=== PATIENT | female | born 1990 | race American Indian/Alaskan Native ===

== ENCOUNTER 2018-02-27 19:21 | Emergency (ER) | payer SELFPAY ==
[2018-02-27] MEDS ORDERED: Sodium Chloride 0.9% 10 ML Syringe FLUSH PRN (19:35)
[2018-02-27] MEDS ORDERED: Sodium Chloride 0.9% 1,000 ML IV ONE (19:39)
[2018-02-27] MEDS ORDERED: LORazepam 2 MG/ML SDV IVPUSH ONE ×3 (19:45→20:19)
[2018-02-27] MEDS ORDERED: levETIRAcetam 500 MG in Sodium Chloride 0.9% 100 ML IV ONE (19:45)
[2018-02-27] MEDS ORDERED: Ondansetron 4 MG/2 ML SDV IVPUSH ONE (20:06)
[2018-02-27 20:19] LABS: CHLORIDE,CL 107 mmol/L (98-107); SODIUM,NA 143 mmol/L (136-145)
[2018-02-27] MEDS ORDERED: SODIUM CHLORIDE IV ONE (20:46)
[2018-02-27] MEDS ORDERED: [UNRECOGNIZED DRUG - OTHER] IV ONE (20:46)
[2018-02-27] MEDS ORDERED: FOSPHENYTOIN IV ONE (20:46)
[2018-02-27] MEDS ORDERED: Magnesium Sulfate/Water 4 GM in Premix Bag 1 BAG IV ONE (20:57)
[2018-02-27] MEDS ORDERED: Magnesium Sulfate/Water 2 GM in Premix Bag 1 BAG IV ONE (20:58)
[2018-02-27] MEDS ORDERED: Betamethasone Acetate/Betamethasone Sod Phosphate 30 MG/5 ML MDV IM ONE (20:58)
[2018-02-27] MEDS ORDERED: Labetalol 20 MG/4 ML Syringe IVPUSH ONE (20:59)
[2018-02-27] MEDS: OLANZapine 10 MG Vial IM ONE ×2 (21:00→21:06)
[2018-02-27] MEDS ORDERED: Magnesium Sulfate/Water 50 ML ONE (21:18)
--- NOTE | 2018-02-27 21:25 | EDM.PDOC ---
ED HPI GENERAL MEDICAL PROBLEM - General Chief Complaint: Neuro Symptoms/Deficits Stated Complaint: seizures Time Seen by Provider: 02/27/18 19:33 Source of Information: Reports: Patient, EMS Notes Reviewed, Family, Old Records , RN, RN Notes Reviewed History Limitations: Reports: No Limitations - History of Present Illness INITIAL COMMENTS - FREE TEXT/NARRATIVE: Patient is brought to the emergency room at [facility] via EMS for a witnessed seizure. Apparently the patient was on her way to [place] when she started to have a witnessed seizure by the frontload driver which lasted 2-3 minutes. EMS crew was called. Upon their arrival the patient was post ictal and was very combative. The patient was brought to the emergency room. Upon arrival the patient continued to be post ictal, less combative, but uncontrollable. The patient is 24 weeks . It is unknown whether or not the patient has a seizure history. Onset: Today, Sudden Onset Date: 02/27/18 - Related Data Allergies Allergy/AdvReac Type Severity Reaction Status Date / Time No Known Allergies Allergy Verified 02/27/18 20:32 Home Meds: Home Meds . [Unable to Verify Home Med List] 02/27/18 [History] ED ROS GENERAL - Review of Systems Review Of Systems: Unable To Obtain - Physical Exam Exam: See Below Exam Limited By: Altered Mental Status General Appearance: Moderate Distress Eye Exam: Bilateral Eye: Other (Unable to fully assess, pupils 2mm and sluggish ; patient not cooperative due to post ictal state) Ears: Normal External Exam, Normal Canal, Normal TMs Throat/Mouth: Normal Inspection, No Airway Compromise. No: Evidence of Tongue Biting Head Exam: Atraumatic, Normocephalic Neck: Supple Respiratory/Chest: No Respiratory Distress, Lungs Clear, Normal Breath Sounds Cardiovascular: Normal Peripheral Pulses, Regular Rate, Rhythm, No Edema GI/Abdominal: Normal Bowel Sounds, Soft, Non-Tender Neuro Exam (Abbreviated): Other (Unable to assess due to severe post ictal state ; patient is thrashing and combative during exam) Extremities: Normal Inspection Skin Exam: Warm, Dry, Intact, Normal Color Course - Orders/Labs/Meds Orders: Active Orders 24 hr Category Date Time Status Insert Urinary Catheter [OM.PC] Stat Care 02/27/18 19:38 Ordered DRUG SCREEN, URINE [URCHEM] Stat Lab 02/27/18 20:05 Ordered UA W/MICROSCOPIC [URIN] Stat Lab 02/27/18 20:05 Ordered Magnesium Sulfate/Water [Magnesium Sulfate 2 GM in Med 02/27/18 20:58 Active Water 50 ML] 2 gm Premix Bag 1 bag IV ONETIME Magnesium Sulfate/Water [Magnesium Sulfate 4 GM in Med 02/27/18 20:57 Active Water 100 ML] 4 gm Premix Bag 1 bag IV ONETIME Sodium Chloride 0.9% [Saline Flush] Med 02/27/18 19:35 Active 10 ml FLUSH ASDIRECTED PRN Peripheral IV Insertion Adult [OM.PC] Routine Oth 02/27/18 19:35 Ordered Medication Orders Magnesium Sulfate 4 gm/ Premix 100 mls @ 25 mls/hr IV ONETIME ONE Stop: 02/28/18 00:56 Magnesium Sulfate 2 gm/ Premix 50 mls @ 25 mls/hr IV ONETIME ONE Stop: 02/27/18 22:57 Sodium Chloride (Saline Flush) 10 ml FLUSH ASDIRECTED PRN PRN Reason: Keep Vein Open Labs: Laboratory Tests 02/27/18 02/27/18 02/27/18 Range/Units 19:45 19:45 19:45 WBC 12.9 H (4.0-10.0) x10^3/uL RBC 3.60 L (4.00-5.50) x10^6/uL Hgb 10.5 L (12.0-16.0) g/dL Hct 31.7 L (33.0-47.0) % MCV 88.1 (78.0-93.0) fL MCH 29.2 (26.0-32.0) pg MCHC 33.1 (32.0-36.0) g/dL RDW Coeff of Johann 15.3 H (10.0-15.0) % Plt Count 297 (130-400) x10^3/uL Neut % (Auto) 47.1 L (50.0-80.0) % Lymph % (Auto) 45.2 (25.0-50.0) % [place] % (Auto) 7.0 (2.0-11.0) % Eos % (Auto) 0.5 (0.0-4.0) % Baso % (Auto) 0.2 (0.2-1.2) % Sodium 143 (136-145) mmol/L Potassium 3.0 L (3.5-5.1) mmol/L Chloride 107 (98-107) mmol/L Carbon Dioxide 15 L (21-32) mmol/L Anion Gap 24.0 H (10-20) mmol/L BUN 6 L (7-18) mg/dL Creatinine 1.0 (0.55-1.02) mg/dL Est Cr Clr Drug Dosing TNP Estimated GFR (MDRD) > 60 Glucose 110 H (74-106) mg/dL Lactic Acid 7.0 H* (0.4-2.0) mmol/L Calcium 9.3 (8.5-10.1) mg/dL Corrected Calcium 10.02 (8.5-10.1) mg/dL Magnesium 1.6 L (1.8-2.4) mg/dL Total Bilirubin 0.3 (0.2-1.0) mg/dL AST 12 L (15-37) U/L ALT 11 L (14-59) U/L Alkaline Phosphatase 99 (46-116) U/L C-Reactive Protein 0.7 (<=0.9) mg/dL Total Protein 7.7 (6.4-8.2) g/dL Albumin 3.1 L (3.4-5.0) g/dL Globulin 4.6 Albumin/Globulin Ratio 0.67 Urine Color (YELLOW) Urine Appearance (CLEAR) Urine pH (5.0-8.0) Ur Specific [place] Urine Protein (NEGATIVE) mg/dL Urine Glucose (UA) (NEGATIVE) mg/dL Urine Ketones (NEGATIVE) mg/dL Urine Occult Blood (NEGATIVE) Urine Nitrite (NEGATIVE) Urine Bilirubin (NEGATIVE) Urine Urobilinogen (0.2) EU/dL Ur Leukocyte Esterase (NEGATIVE) Urine RBC (NOT SEEN) /HPF Urine WBC (NOT SEEN) /HPF Ur Squamous Epith Cells (NEGATIVE) /HPF Urine Bacteria (NEGATIVE) /HPF Hyaline Casts (NEGATIVE) /HPF Granular Casts (NEGATIVE) /HPF Urine Mucus (NEGATIVE) /LPF Urine Opiates Screen (NEGATIVE) Ur Buprenorphine Scrn (NEGATIVE) Ur Oxycodone Screen (NEGATIVE) Urine Methadone Screen (NEGATIVE) Ur Barbiturates Screen (NEGATIVE) Ur Tricyclics Screen (NEGATIVE) Ur Amphetamine Screen (NEGATIVE) U Methamphetamines Scrn (NEGATIVE) Urine MDMA Screen (NEGATIVE) U Benzodiazepines Scrn (NEGATIVE) U Cocaine Metab Screen (NEGATIVE) U Marijuana (THC) Screen (NEGATIVE) Ethyl Alcohol < 3 (0-3) mg/dL 02/27/18 02/27/18 Range/Units 20:05 20:05 WBC (4.0-10.0) x10^3/uL RBC (4.00-5.50) x10^6/uL Hgb (12.0-16.0) g/dL Hct (33.0-47.0) % MCV (78.0-93.0) fL MCH (26.0-32.0) pg MCHC (32.0-36.0) g/dL RDW Coeff of Johann (10.0-15.0) % Plt Count (130-400) x10^3/uL Neut % (Auto) (50.0-80.0) % Lymph % (Auto) (25.0-50.0) % [place] % (Auto) (2.0-11.0) % Eos % (Auto) (0.0-4.0) % Baso % (Auto) (0.2-1.2) % Sodium (136-145) mmol/L Potassium (3.5-5.1) mmol/L Chloride (98-107) mmol/L Carbon Dioxide (21-32) mmol/L Anion Gap (10-20) mmol/L BUN (7-18) mg/dL Creatinine (0.55-1.02) mg/dL Est Cr Clr Drug Dosing Estimated GFR (MDRD) Glucose (74-106) mg/dL Lactic Acid (0.4-2.0) mmol/L Calcium (8.5-10.1) mg/dL Corrected Calcium (8.5-10.1) mg/dL Magnesium (1.8-2.4) mg/dL Total Bilirubin (0.2-1.0) mg/dL AST (15-37) U/L ALT (14-59) U/L Alkaline Phosphatase (46-116) U/L C-Reactive Protein (<=0.9) mg/dL Total Protein (6.4-8.2) g/dL Albumin (3.4-5.0) g/dL Globulin Albumin/Globulin Ratio Urine Color Yellow (YELLOW) Urine Appearance Cloudy H (CLEAR) Urine pH 5.5 (5.0-8.0) Ur Specific [place] >=1.030 Urine Protein 100 H (NEGATIVE) mg/dL Urine Glucose (UA) Negative (NEGATIVE) mg/dL Urine Ketones 15 H (NEGATIVE) mg/dL Urine Occult Blood Trace-lysed H (NEGATIVE) Urine Nitrite Negative (NEGATIVE) Urine Bilirubin Negative (NEGATIVE) Urine Urobilinogen 0.2 (0.2) EU/dL Ur Leukocyte Esterase Negative (NEGATIVE) Urine RBC 0-5 (NOT SEEN) /HPF Urine WBC 0-5 (NOT SEEN) /HPF Ur Squamous Epith Cells Few H (NEGATIVE) /HPF Urine Bacteria Not seen (NEGATIVE) /HPF Hyaline Casts Moderate H (NEGATIVE) /HPF Granular Casts Few H (NEGATIVE) /HPF Urine Mucus Few H (NEGATIVE) /LPF Urine Opiates Screen Negative (NEGATIVE) Ur Buprenorphine Scrn Negative (NEGATIVE) Ur Oxycodone Screen Negative (NEGATIVE) Urine Methadone Screen Negative (NEGATIVE) Ur Barbiturates Screen Negative (NEGATIVE) Ur Tricyclics Screen Negative (NEGATIVE) Ur Amphetamine Screen Negative (NEGATIVE) U Methamphetamines Scrn Negative (NEGATIVE) Urine MDMA Screen Negative (NEGATIVE) U Benzodiazepines Scrn Negative (NEGATIVE) U Cocaine Metab Screen Negative (NEGATIVE) U Marijuana (THC) Screen Negative (NEGATIVE) Ethyl Alcohol (0-3) mg/dL Meds: Medications Generic Name Dose Route Start Last Admin Trade Name Freq PRN Reason Stop Dose Admin Magnesium Sulfate 4 gm/ Premix 100 mls @ 25 mls/hr 02/27/18 20:57 IV 02/28/18 00:56 ONETIME ONE Magnesium Sulfate 2 gm/ Premix 50 mls @ 25 mls/hr 02/27/18 20:58 IV 02/27/18 22:57 ONETIME ONE Sodium Chloride 10 ml 02/27/18 19:35 Saline Flush FLUSH ASDIRECTED PRN Keep Vein Open Discontinued Medications Generic Name Dose Route Start Last Admin Trade Name Freq PRN Reason Stop Dose Admin Betamethasone Acet/Betameth SodPhos 12 mg 02/27/18 20:58 Celestone Soluspan 6 Mg/Ml IM 02/27/18 20:59 ONETIME ONE Sodium Chloride 1,000 mls @ 999 mls/hr 02/27/18 19:39 02/27/18 19:35 Normal Saline IV 02/27/18 20:39 999 mls/hr ONETIME ONE Administration Levetiracetam 500 mg/ Sodium 105 mls @ 400 mls/hr 02/27/18 19:45 02/27/18 19: 55 Chloride IV 02/27/18 19:59 400 mls/hr ONETIME ONE Administration Fosphenytoin Sodium 750 mg.pe/ 115 mls @ 600 mls/hr 02/27/18 20:46 Sodium Chloride IV 02/27/18 20:56 ONETIME ONE Magnesium Sulfate Confirm 02/27/18 21:18 Magnesium Sulfate 2 Gm In Water 50 Ml Administered 02/27/18 21:19 Dose 50 mls @ as directed .ROUTE .STK-MED ONE Labetalol HCl 20 mg 02/27/18 20:59 Normodyne IVPUSH 02/27/18 21:00 NOW ONE Protocol Lorazepam 2 mg 02/27/18 19:45 02/27/18 19:50 Ativan IVPUSH 02/27/18 19:46 2 mg ONETIME ONE Administration Lorazepam 2 mg 02/27/18 20:05 02/27/18 20:09 Ativan IVPUSH 02/27/18 20:06 2 mg ONETIME ONE Administration Lorazepam 2 mg 02/27/18 20:19 02/27/18 20:23 Ativan IVPUSH 02/27/18 20:20 2 mg ONETIME ONE Administration Olanzapine 2.5 mg 02/27/18 20:45 Zyprexa IM 02/27/18 20:46 ONETIME ONE Ondansetron HCl 4 mg 02/27/18 20:06 02/27/18 20:16 Zofran IVPUSH 02/27/18 20:07 4 mg ONETIME ONE Administration Departure - Departure Time of Disposition: 21:30 Disposition: DC/Tfer to Acute Hospital 02 Condition: Fair Clinical Impression: Seizure disorder Pre-eclampsia Qualifiers: Trimester: second trimester Qualified Code(s): O14.92 - Unspecified pre- eclampsia, second trimester - Discharge Information Forms: Interfacility Transfer [facility] ED Communication - ED Communication Date/Time Date: 02/27/18 Time Called: 20:32 - Discussed Case With (1) Discussed Case With (1): Admitting Provider (Dr. Andres, TRAM INSPECTOR Dr. Murillo, Neurology) - Conversation Summary Admitting Provider Agreed to Patient's Admission: Yes Patient's POA/Guardian Aware of Amendments to Care Plan: Yes - Problem List Review Problem List Initiated/Reviewed/Updated: Yes - My Orders Last 24 Hours: My Active Orders 02/27/18 19:35 Sodium Chloride 0.9% [Saline Flush] 10 ml FLUSH ASDIRECTED PRN Peripheral IV Insertion Adult [OM.PC] Routine 02/27/18 19:38 Insert Urinary Catheter [OM.PC] Stat 02/27/18 20:05 DRUG SCREEN, URINE [URCHEM] Stat UA W/MICROSCOPIC [URIN] Stat 02/27/18 20:57 Magnesium Sulfate/Water [Magnesium Sulfate 4 GM in Water 100 ML] 4 gm Premix Bag 1 bag IV ONETIME 02/27/18 20:58 Magnesium Sulfate/Water [Magnesium Sulfate 2 GM in Water 50 ML] 2 gm Premix Bag 1 bag IV ONETIME - Assessment/Plan Last 24 Hours: My Active Orders 02/27/18 19:35 Sodium Chloride 0.9% [Saline Flush] 10 ml FLUSH ASDIRECTED PRN Peripheral IV Insertion Adult [OM.PC] Routine 02/27/18 19:38 Insert Urinary Catheter [OM.PC] Stat 02/27/18 20:05 DRUG SCREEN, URINE [URCHEM] Stat UA W/MICROSCOPIC [URIN] Stat 02/27/18 20:57 Magnesium Sulfate/Water [Magnesium Sulfate 4 GM in Water 100 ML] 4 gm Premix Bag 1 bag IV ONETIME 02/27/18 20:58 Magnesium Sulfate/Water [Magnesium Sulfate 2 GM in Water 50 ML] 2 gm Premix Bag 1 bag IV ONETIME Assessment:: Seizure disorder Pre-eclamsia N/V Plan: Case was discussed with Dr. Murillo who recommended that the patient get a loading dose of fosphenytoin and Zyprexa IM. The fosphenytoin will be followed by 100 mg every 8 hours. The case was also discussed with Dr. Andres, TRAM INSPECTOR. Patient was given a 6 mg bolus of magnesium followed by 2 g per hour infusion. The patient was also given 12 mg of Celestone IM. Patient was also given 20 mg of labetalol for her tachycardia and hypertension. [facility] [place] [facility] on the [address] Andres is the accepting provider. The patient will be transferred ALS ground. The family is aware of the transfer and wishes to proceed. The patient has a patent airway upon discharge. No indication for intubation recommended. Unable to complete CT Head scan due to severe post ictal state. Accepting provider aware.
== END 2018-02-27 21:50 | disposition short-term general hospital (02) ==
LOC: VM.ED 19:21
DX: O99.352 Diseases of the nervous system complicating pregnancy, second trimester (principal); O14.92 Unspecified pre-eclampsia, second trimester; G40.909 Epilepsy, unspecified, not intractable, without status epilepticus; Z3A.24 24 weeks gestation of pregnancy
CPT/HCPCS: 36415; 51702; 80053; 80305; 81001; 83605; 83735; 85025; 86140; 96361; 96365; 96367; 96368; 96372; 96374; 96375; 96376; 99291; 99292; G0480; J0702; J1953; J2060; J2405; J3475; J3490; J7030; J7050; Q2009; S0166